=== PATIENT | female | born 1970 ===

== ENCOUNTER 2025-03-16 05:00 | Day surgery (SDC) | payer OTHER ==
[~2025-03-16 05:00] MED LIST: COZAAR100 MG PO; TOPROL XL50 M1 PO
[2025-03-16] MEDS ORDERED: POVIDONE-IODINE 118 ML BOTT TOP ONE (07:47)
[2025-03-16] MEDS ORDERED: CEFAZOLIN SODIUM 1,000 MG VIAL IV ONE (08:15)
== END 2025-03-16 14:00 | disposition home or self-care (01) ==
LOC: CIR.AMB 05:00
PROVIDERS: ATTEND Obstetrics & Gynecology
DX: N85.00 Endometrial hyperplasia, unspecified (principal)